=== PATIENT | male | born 1960 | race Caucasian/White ===

== ENCOUNTER → 2017-07-03 | Outpatient (CLI) | payer OTHER ==
--- NOTE | ~2017-07-03 | CR61 ---
[facility] A Service of [facility] RADIOLOGY TEXT RESULTS PATIENT: RADHA MAIN LOCATION: [facility] : 60 UNIT #: [id number] AGE: [address]: Charissa Farr MD SEX: M ORDER DR: [id number] [facility] [address]. [place], [place] [address] [id number] O MR#: [id number] Acc #: [id number] NAME: RADHA MAIN : 1960 SEX: M STUDY DATE/TIME: 07/03/2017 14:44 UNIT: [facility] ROOM: STUDY DESCRIPTION: CR Cervical Spine Min 5 Views Attending Physician: Charissa Farr M.D. Referring Physician: Charissa Farr M.D. Ordering Physician: Charissa Farr M.D. Primary Care Physician: Charissa Farr M.D. MEDICAL IMAGING REPORT This report is preliminary unless electronic signature is present EXAM Cervical spine series INDICATION Pain in left side of neck and tingling in the left arm for a month. FINDINGS AP, oblique, lateral and odontoid views of the cervical spine were obtained. There is mild anterior osteophyte formation at C5-6 and C6-7. There is mild disc space narrowing at C6-7. The neural foramina appear patent on the right side. The left oblique is poorly positioned and it is difficult to evaluate the neural foramina. IMPRESSION 1. The left oblique image does not show the neural foramina very well. The right neural foramina appear patent. 2. Mild degenerative change at C5-6 and C6-7. Dictated by... Willian David M.D. THIS IS AN ELECTRONICALLY VERIFIED REPORT Willian David M.D. at 07/04/2017 12:26 PM Keron TD: 07/03/2017 23:07 JOB #: [id number] MEDICAL IMAGING REPORT Page 1 of 1 COPY
== END | disposition home or self-care (01) ==
LOC: CRAD 14:28
DX: M47.22 Other spondylosis with radiculopathy, cervical region (principal)
CPT/HCPCS: 72050